=== PATIENT | female | born 1965 | race Caucasian/White ===

== ENCOUNTER → 2020-08-27 | Day surgery (SDC) | payer OTHER ==
[~2020-08-27] MED LIST: ATORVASTATIN CA10 MG PO; DOXYCYCLINE HYC20 MG PO; HCTZ25 MG PO; LISINOPRIL10 MG PO; NORCO 5-325 TA1 EACH PO; ONDANSETRON ODT8 MG PO; PAROXETINE 10MG10 MG PO; VYVANSE30 MG PO
[2020-08-27 07:29] LABS: HCT 42.1 % (37.0-47.0); MCH 28.9 pg (25.0-31.0); MCHC 33.3 g/dL (32.0-36.0); MCV 86.8 fL (78.0-100.0); MPV 9.7 fL (6.0-9.5); RBC 4.85 M/uL (4.20-5.40); RDW 13.3 % (11.5-14.0); WBC 5.9 K/uL (4.0-10.5)
[2020-08-27 08:11] LABS: ALBUMIN 3.9 g/dL (3.4-5.0); BILIRUBIN - TOTAL 0.6 mg/dL (0.2-1.0); BUN/CREAT RATIO (CALC) 20.5 RATIO; CREATININE 0.73 mg/dL (0.51-0.95); GLOBULIN (CALCULATION) 3.8 g/dL; POTASSIUM 3.9 mmol/L (3.5-5.1); TOTAL PROTEIN 7.7 g/dL (6.4-8.2)
== END | disposition home or self-care (01) ==
LOC: FAS 07:01
PROVIDERS: Surgery
DX: K64.0 First degree hemorrhoids (principal); K21.9 Gastro-esophageal reflux disease without esophagitis; M19.90 Unspecified osteoarthritis, unspecified site; G47.30 Sleep apnea, unspecified; E78.00 Pure hypercholesterolemia, unspecified; I10 Essential (primary) hypertension; Z79.899 Other long term (current) drug therapy; Z90.49 Acquired absence of other specified parts of digestive tract; Z90.710 Acquired absence of both cervix and uterus; Z98.890 Other specified postprocedural states; Z20.822 Contact with and (suspected) exposure to COVID-19
CPT/HCPCS: 36415; 80053; J1100; J2250; J2704; J7120